=== PATIENT | male | born 1975 | race Two or more races ===

== ENCOUNTER 2024-07-13 15:51 | Emergency (ER) | payer BC ==
[~2024-07-13] VITALS: Ht 170.2 cm; Wt 86.2 kg
[2024-07-13] MEDS ORDERED: LEVOTHYROXINE13 MCG (15:58)
[2024-07-13] MEDS ORDERED: COZAAR25 MG (15:58)
[2024-07-13] MEDS ORDERED: KETOROLAC TROMETHAMINE 30 MG VIAL IM STA (17:09)
[2024-07-13] MEDS ORDERED: ORPHENADRINE CITRATE 30 MG/ML AMPUL IM STA (17:16)
[2024-07-13] MEDS ORDERED: METAXALONE800 MG PO (19:57)
[2024-07-13] MEDS ORDERED: CELEBREX200MG PO (19:57)
== END 2024-07-13 20:28 | disposition home or self-care (01) ==
LOC: ER 15:53
DX: M54.50 Low back pain, unspecified (principal); I10 Essential (primary) hypertension; E03.8 Other specified hypothyroidism

== ENCOUNTER 2024-10-19 15:49 | Emergency (ER) | payer BC ==
[~2024-10-19] VITALS: Ht 170.2 cm; Wt 86.2 kg
[~2024-10-19 15:49] MED LIST: CELEBREX200MG PO; COZAAR25 MG; LEVOTHYROXINE13 MCG; METAXALONE800 MG PO
[2024-10-19 16:15] VITALS: BP 142/81; O2SAT 96
[2024-10-19] MEDS ORDERED: hydrOXYzine PAMOATE 25 MG CAPSULE PO STA (16:45)
[2024-10-19] MEDS ORDERED: hydrOXYzine PAMOATE 25 MG CAPSULE PO ONE (16:54)
== END 2024-10-19 18:11 | disposition home or self-care (01) ==
LOC: ER 15:51
DX: F41.9 Anxiety disorder, unspecified (principal)

== ENCOUNTER → 2024-12-08 | Emergency (ER) | payer BC ==
[~2024-12-08] VITALS: Ht 172.7 cm; Wt 91.2 kg
[~2024-12-08] MED LIST changes: +BUTALB-ASPIRIN1 EACH PO; +ESGIC 50-325-41 EACH PO; +FAMOTIDINE/PF 20 MG in 0.9 % SODIUM CHLORIDE 8 ML IV PUSH STA; +FAMOTIDINE/PF 20 MG/2 ML VIAL ONE; +KETOROLAC TROMETHAMINE 30 MG VIAL IV ONE; +KETOROLAC TROMETHAMINE 30 MG VIAL ONE
[2024-12-08 14:30] LABS: HEMATOCRIT 42.5 % (39.0-48.0); HEMOGLOBIN 14.4 g/dL (13-16.00); MEAN CORPUSCULAR HEMOGLOBIN 29.9 pg (27.00-32.0); PLATELET COUNT 297 K/uL (150-450); RED BLOOD COUNT 4.82 M/uL (4.00-6.00); RED CELL DISTRIBUTION WIDTH 14.6 % (11.5-14.5)
[2024-12-08 16:31] LABS: ALBUMIN 4.3 gm/dL (3.4-5.0); BILIRUBIN TOTAL 0.57 mg/dL (0.3-1.2); CALCIUM 9.1 mg/dL (8.5-10.1); CREATININE SERUM 0.98 mg/dL (0.70-1.30); GFR 80.96; GLOBULINA 3.7 G/DL (2.4-3.5); POTASSIUM 3.72 mEq/L (3.5-5.1)
== END | disposition home or self-care (01) ==
LOC: ER 13:19
PROVIDERS: General Practice
DX: R51.9 Headache, unspecified (principal); R00.2 Palpitations; I10 Essential (primary) hypertension

== ENCOUNTER 2025-02-26 00:06 | Emergency (ER) | payer BC ==
[~2025-02-26] VITALS: Ht 170.2 cm; Wt 90.7 kg
[~2025-02-26 00:06] MED LIST changes: -FAMOTIDINE/PF 20 MG in 0.9 % SODIUM CHLORIDE 8 ML IV PUSH STA; -FAMOTIDINE/PF 20 MG/2 ML VIAL ONE; -KETOROLAC TROMETHAMINE 30 MG VIAL IV ONE; -KETOROLAC TROMETHAMINE 30 MG VIAL ONE
[2025-02-26 01:09] LABS: BASO % 1.6 % (0.1-1.2); EOS # 0.65 (0.04-0.54); EOS % 7.9 % (0.7-7.0); HEMATOCRIT 42.8 % (40.1-51.0); HEMOGLOBIN 14.6 g/dL (13.7-17.5); LYMPH # 3.38 (1.18-3.74); LYMPH % 41.2 % (19.3-53.1); MEAN CORPUSCULAR HEMOGLOBIN 29.5 pg (25.6-32.2); MONO % 8.5 % (4.7-12.5); NEUT # 3.33 (1.56-6.13); NEUT % 40.6 % (34.0-71.1); PLATELET COUNT 318 K/uL (163-369); RED BLOOD COUNT 4.95 M/uL (4.63-6.08); RED CELL DISTRIBUTION WIDTH 14.1 % (11.6-14.4)
[2025-02-26 01:32] LABS: BILIRUBIN TOTAL 0.44 mg/dL (0.3-1.2); CALCIUM 9.3 mg/dL (8.5-10.1); CREATININE SERUM 1.01 mg/dL (0.70-1.30); GFR 78.19; GLOBULINA 3.4 G/DL (2.4-3.5); TOTAL PROTEIN 7.4 gm/dL (6.4-8.2)
== END 2025-02-26 02:40 | disposition home or self-care (01) ==
LOC: ER 00:54
PROVIDERS: General Practice
DX: R07.9 Chest pain, unspecified (principal); I10 Essential (primary) hypertension